=== PATIENT | female | born 1985 | race Caucasian/White ===

== ENCOUNTER 2018-10-06 00:36 | Day surgery (SDC) | payer OTHER ==
[~2018-10-06] VITALS: Ht 152.4 cm; Wt 98.4 kg
[~2018-10-06 00:36] MED LIST: CETI10CA8 PO; HYDR-385 PO; IBU800 PO; IBUP-2704 PO; IRON1TAB55 PO; LEVO1TAB9 PO; PER PO; TRAZ50TA52 PO
[2018-10-06] MEDS ORDERED: PROPOFOL EMUL(*) 10MG/ML 20 ML 20 ML ONE (11:56)
[2018-10-06] MEDS ORDERED: LIDOCAINE 2% IV 100 MG/5ML SYR ONE (11:57)
[2018-10-06] MEDS ORDERED: fentaNYL CITR 250 MCG/5 ML AMP ONE (11:57)
[2018-10-06] MEDS ORDERED: ROCURONIUM BR 10 MG/ML 5 ML SY 5 ML ONE (12:00)
[2018-10-06 12:35] VITALS: BP 114/69
[2018-10-06 13:00] LABS: PLATELET COUNT, AUTOMATED 234 K/uL (150-450)
[2018-10-06] MEDS ORDERED: FAMOTIDINE 20 MG TAB PO ONE (13:35)
[2018-10-06] MEDS ORDERED: NORMOSOL R SOLN(*) 1000 ML BAG 1,000 ML IV PRN (13:35)
[2018-10-06] MEDS ORDERED: MIDAZOLAM 2 MG/2 ML VIAL IVP PRN (13:35)
[2018-10-06] MEDS ORDERED: LIDOCAINE/SOD BICARB 8.4% SYR ID ONE (13:35)
[2018-10-06] MEDS ORDERED: SCOP1PAT2 TD (13:44)
[2018-10-06] MEDS ORDERED: ROPIVACAINE 0.2% 20 ML VIAL ONE (13:58)
[2018-10-06] MEDS ORDERED: DEXAMETHASONE SOD 4 MG/ML VIAL ONE (14:10)
[2018-10-06] MEDS ORDERED: KETOROLAC 30 MG/ML VIAL ONE (14:10)
[2018-10-06] MEDS ORDERED: SUGAMMADEX SOD 200 MG/2 ML SDV ONE (14:10)
[2018-10-06] MEDS ORDERED: ONDANSETRON 4 MG/2 ML VIAL ONE (14:10)
[2018-10-06] MEDS ORDERED: LR(*) 1000 ML BAG 1,000 ML IV ONE (15:27)
--- NOTE | 2018-10-06 15:27 | Post Operative Note ---
Operative Note - OPERATIONS DEVELOPER Operative Day Date: Oct 06, 2018 Time: 15:26 Physicians Surgeon: Brittany Anesthesia: BOUCHRAA Diagnosis Pre-Op Diagnosis: sterilization Post-Op Diagnosis: same Procedure Procedure(s): L-scope bilateral salpingectomy Specimen Removed:(Maybe N/A): bilateral tubes Complications: [id number] Fluids Fluids: 1000 ml Estimated Blood Loss: minimal Dictated Date OP Note Dictated: Oct 06, 2018 Time OP Note Dictated: 15:27 Copies to: FLAKITA CONN MD ; FLAKITA CONN MD Oct 06, 2018 15:27
[2018-10-06] MEDS ORDERED: LOR5/325 PO (15:29)
[2018-10-06] MEDS ORDERED: APAP/HYDROCODONE 325/5 TAB PO PRN (15:30)
--- NOTE | 2018-10-06 15:31 | Short(Outpt) Discharge Summary ---
Discharge Summary Reason for Hosp/Final Diag: (1) Admission for sterilization Hospital Course & Plan: s/p L-scope bilateral salpingectomy Departure Discharge to: Home, Self Care Discharge Instructions Home Meds Active Scripts Hydrocodone Bit/Acetaminophen (HYDROCODON-ACETAMINOPHEN 5-325) 1 Each Tablet, 1 EACH PO Q4-6H PRN for PAIN, #10 TAB 0 Refills Prov:FLAKITA CONN MD 10/06/18 Reported Medications Scopolamine (Transderm-Scop) 1 Mg/3 Day Patch.td.3, 1 PATCH TD ONCE 10/06/18 Cetirizine Hcl (ZYRTEC) 10 Mg Capsule, 10 MG PO QDAY, CAPSULE 10/03/18 Trazodone Hcl (TRAZODONE HCL) 50 Mg Tablet, 50 MG PO PRN 10/03/18 Discontinued Reported Medications Ibuprofen (MOTRIN) 800 Mg Tablet, 800 MG PO Q8H 03/02/13 Hydrocodone Bit/Acetaminophen (HYDROCODON-ACETAMINOPHEN 5-325) 1 Each Tablet, 1- 2 EACH PO Q4H PRN for PAIN 03/02/13 Levonorgestrel-Eth Estradiol (KURVELO) 1 Each Tablet, 1 EACH PO QPM 02/27/13 Follow up Referrals: READING TEACHER - In Two Weeks @ [facility] with FLAKITA CONN MD Diet: Regular Activity: As Tolerated, No Heavy Lifting, No Exertion Copies to: FLAKITA CONN MD ; FLAKITA CONN MD Oct 06, 2018 15:31
[2018-10-06] MEDS ORDERED: fentaNYL CITR 100 MCG/2 ML AMP ONE (15:44)
[2018-10-06 16:30] VITALS: BP 114/71
[2018-10-06 16:38] VITALS: BP 114/79
[2018-10-06 16:39] VITALS: BP 120/74
--- NOTE | 2018-10-06 16:53 | NUR ---
1625 I WILL BE RESUMING CARE OF PATIENT. SEE PACU NOTES 1638 BEGAN DOING ORTHOSTATICS WITH PATIENT 1639 PATIENT HAD A SMALL AMOUNT OF BLOODY VAGINAL DRAINAGE. PERIPAD WAS REAPPLIED AND MESH UNDERWEAR APPLIED. PATIENT DENIES ANY DIZZINESS STANDING AND WAS STABLE ON HER FEET. 1649 PATIENT BEGAN GETTING DRESSED WITHOUT DIFFICULTIES 1653 PATIENT WAS ABLE TO VOID WITHOUT DIFFICULTIES
--- NOTE | 2018-10-06 17:07 | NUR ---
1705 WENT OVER DC INSTRUCTIONS WITH PATIENT. SHE VERBALIZED UNDERSTANDING.
--- NOTE | 2018-10-06 17:12 | NUR ---
1710 IV WAS DC'D WITH CATH INTACT
--- NOTE | 2018-10-06 17:14 | NUR ---
1712 PATIENTS LUNGS ARE CLEAR. BOWEL SOUNDS ARE HYPERACTIVE. INCISIONS REMAIN DRY AND INTACT. SMALL AMOUNT OF BLOODY VAGINAL DRAINAGE ON PERIPAD. PATIENTS STATES HER PAIN IS 2/10. DENIES ANY NAUSEA. SEE DISCHARGE ASSESSMENT.
--- NOTE | 2018-10-07 12:07 | OPERATIVE REPORT 1 ---
EVENT DATE: October 06, 2018 SURGEON: Jayjay Soto MD ANESTHESIOLOGIST: Odell Cano MD ANESTHESIA: General endotracheal. PREOPERATIVE DIAGNOSIS 1. Desired sterilization. 2. Previous section x2. 3. Previous endometrial ablation. POSTOPERATIVE DIAGNOSIS 1. Desired sterilization. 2. Previous section x2. 3. Previous endometrial ablation. PROCEDURE PERFORMED Laparoscopic bilateral salpingectomy. ESTIMATED BLOOD LOSS Minimal. IV FLUIDS 1000 cc IV Crystalloid. FINDINGS Normal appearing right upper quadrant, normal appearing uterus, ovaries and right tube. The left fallopian tube was adherent to the left pelvic sidewall and the distal end somewhat dilated. DESCRIPTION OF PROCEDURE The patient was brought to the operating room with a working IV, placed in the dorsal supine position. She was placed under general endotracheal anesthesia by Dr. Cano and then moved to the dorsal lithotomy position. She was then prepped and draped in the usual sterile fashion. Using a weighted speculum, the cervix was visualized and grasped on the anterior lip with a single-toothed tenaculum. The uterus was carefully sounded to a depth of 8 cm. An 8 cm Cookie uterine manipulator was selected and the cervix was carefully dilated to accommodate. It was passed through the cervix and into the uterus, bulb inflated and secured and all instruments were then removed. The bladder was drained at prep and the legs were brought back to the supine position. I went above the abdomen to proceed with laparoscopy. Gloves were changed. The umbilicus was infiltrated with 0.2% Naropin and a 5 mm stab incision was made. Towel clips were placed for assistance in elevating the anterior abdominal wall and a Veress needle was passed through this incision into the abdomen while elevating and stabilizing the anterior abdominal wall. A negative pressure was observed on the insufflation device when we elevated the abdominal wall, confirming an intraabdominal presence and then the insufflation proceeded to an intraabdominal pressure of 20 mmHg. Once we had reached 20 mmHg, the Veress needle was removed and a 5 mm bladeless trocar was passed through this incision into abdomen under direct visualization with the scope. The two additional 5 mm ports were placed in the suprapubic and left lower quadrant locations under similar technique and under direct visualization. Using the LigaSure device, the right fallopian tube was put on medial stretch exposing the mesosalpinx. The tube was dissected away from its pelvic connection through this mesosalpinx up to the corneal region of the tube at which point it was amputated from the uterus. This tube was taken out of the abdomen through the suprapubic port. Attention was then turned to the left side and as mentioned above, it was adherent to the left pelvic sidewall. Therefore, careful dissection in this location, well above any vital structures was performed to dissected the tube away from the pelvic sidewall. It was then dissected through the mesosalpinx up to the corneal region and amputated from the uterus. It was taken out of the suprapubic port as well. The pelvis was then irrigated and suctioned dried. No visible bleeders. The ovaries looked viable. No visible pathology on the ovaries. The procedure was then terminated. After suctioning out the pneumoperitoneum thoroughly all instruments were then removed. The skin incisions were repaired with a 4-0 Monocryl simple subdermal and covered with Dermabond skin adhesive. The Cookie uterine manipulator was removed. She was returned to the dorsal supine position, awakened from general anesthesia in stable condition and taken to recovery. Sponge, lap, needle, and instrument counts were all correct x3. MTDD
== END 2018-10-06 16:25 | disposition home or self-care (01) ==
LOC: OR 00:36
PROVIDERS: ATTEND Obstetrics & Gynecology
DX: Z30.2 Encounter for sterilization (principal); E66.01 Morbid (severe) obesity due to excess calories
CPT/HCPCS: 58661; 84702; 85025; 88302; J1100; J1885; J2001; J2405; J2704; J2795; J3010